=== PATIENT | male | born 1980 | race Two or more races ===

== ENCOUNTER 2017-06-07 20:00 | Emergency (ER) | payer MEDICAID ==
[~2017-06-07] VITALS: Ht 170.2 cm; Wt 108.9 kg
[2017-06-07 22:22] VITALS: BP 141/99
== END 2017-06-07 22:24 | disposition home or self-care (01) ==
LOC: ER 20:08
DX: I87.2 Venous insufficiency (chronic) (peripheral) (principal); E66.9 Obesity, unspecified; I10 Essential (primary) hypertension; Z90.89 Acquired absence of other organs
CPT/HCPCS: A4606; Z7502; Z7610

== ENCOUNTER 2018-01-10 18:46 | Emergency (ER) | payer MEDICAID ==
[~2018-01-10] VITALS: Ht 175.3 cm; Wt 95.3 kg
--- NOTE | 2018-01-10 19:09 | NUR ---
BIB SELF TO ER 2, CAME IN DUE TO RIGHT LE SWELLING. ALERT AND ORIENTED X 4, VERBALLY RESPONSIVE. ON ROOM AIR AND TOLERATED WELL. BREATHING EVENLY, UNLABORED. WILL CONTINUE TO MONITOR FOR MARGARITA.
--- NOTE | 2018-01-10 19:14 | NUR ---
BRIAN HANYES AT BEDSIDE FOR EVAL.
--- NOTE | 2018-01-10 19:22 | NUR ---
ENDORSED TO NEXT SHIFT RN TO CONTINUE CARE.
--- NOTE | 2018-01-10 20:32 | NUR ---
Patient discharged to home in stable condition. Written and verbal after care instructions given. Patient verbalizes understanding of instruction. no IV to removed. VSS
[2018-01-10 20:37] VITALS: BP 189/111
== END 2018-01-10 20:38 | disposition home or self-care (01) ==
LOC: ER 18:50
DX: M77.51 Other enthesopathy of right foot and ankle (principal); I10 Essential (primary) hypertension; Z90.89 Acquired absence of other organs
CPT/HCPCS: 73610; 99284; A4606; Z7610

== ENCOUNTER 2019-04-23 03:00 | Emergency (ER) | payer MEDICAID ==
[~2019-04-23] VITALS: Ht 170.2 cm; Wt 127.9 kg
[2019-04-23 03:11] VITALS: BP 163/88
[2019-04-23] MEDS ORDERED: CLINDAMYCIN HCL 150 MG CAPSULE PO ONE ×2 (03:30→03:51)
== END 2019-04-23 04:00 | disposition home or self-care (01) ==
LOC: ER 03:05
DX: L97.929 Non-pressure chronic ulcer of unspecified part of left lower leg with unspecified severity (principal); L03.116 Cellulitis of left lower limb; R05 Cough; I10 Essential (primary) hypertension; Z90.89 Acquired absence of other organs

== ENCOUNTER 2024-01-22 05:20 | Emergency (ER) | payer MEDICAID ==
[~2024-01-22] VITALS: Ht 172.7 cm; Wt 81.2 kg
[2024-01-22] MEDS ORDERED: SULF1TAB48 PO (06:29)
[2024-01-22] MEDS ORDERED: KETO10TA2 PO (08:00)
[2024-01-22 08:14] VITALS: BP 138/82; TEMP 98.6; O2SAT 99
== END 2024-01-22 08:14 | disposition home or self-care (01) ==
LOC: ER 05:42
DX: L03.115 Cellulitis of right lower limb (principal); M25.571 Pain in right ankle and joints of right foot; I83.91 Asymptomatic varicose veins of right lower extremity; I10 Essential (primary) hypertension; F17.200 Nicotine dependence, unspecified, uncomplicated; Z98.890 Other specified postprocedural states
CPT/HCPCS: 73610-TC